=== PATIENT | male | born 1980 | race African-American/Black ===

== ENCOUNTER 2022-04-02 20:20 | Emergency (ER) | payer SELFPAY ==
[~2022-04-02] VITALS: Ht 170.2 cm; Wt 80.7 kg
[2022-04-02 20:45] VITALS: BP 140/102
[2022-04-02 23:16] VITALS: BP 130/99
== END 2022-04-02 23:22 | disposition home or self-care (01) | DRG 563 ==
LOC: ED 20:20
DX: S93.601A Unspecified sprain of right foot, initial encounter (principal); W18.40XA Slipping, tripping and stumbling without falling, unspecified, initial encounter; F17.200 Nicotine dependence, unspecified, uncomplicated

== ENCOUNTER 2022-10-04 15:58 | Emergency (ER) | payer OTHER ==
[~2022-10-04] VITALS: Ht 170.2 cm; Wt 94.0 kg
[2022-10-04 16:53] LABS: BASO% 0.6 % (0-3); EOS% 2.6 % (0-8); HEMOGLOBIN 14.8 g/dl (14.0-18.0); IMMATURE GRANULOCYTES 0.6 % (0.0-5.0); LYMPH% 23.8 % (15-41); MEAN CELL VOLUME 88.3 fL CALC (80.0-100.0); MEAN CORPUSCULAR HGB 30.4 pG CALC (26.0-32.0); MEAN CORPUSCULAR HGB CONC 34.4 g/dL CAL (32.0-36.0); MONO% 9.4 % (2-13); NEUT# 4.56 thou/uL (1.82-7.42); RED BLOOD COUNT 4.87 mill/uL (4.70-6.10); RED CELL DISTRI WIDTH 12.9 % (11.5-15.5)
[2022-10-04 17:08] LABS: ALKALINE PHOSPHATASE 74 u/l (38-126); ANION GAP 12 (6-22 (CALC)); BUN 6 mg/dL (9-20); BUN/CREATININE RATIO 8 (12-20 (CALC)); CARBON DIOXIDE 25 mmol/l (22-30); CHLORIDE 104 mmol/l (95-108); CREATININE 0.8 mg/dL (0.7-1.3); GFR FOR AFR.AMER. > 60 ML/MIN (>=60 (CALC)); GFR OTHER RACES > 60 ML/MIN (>=60 (CALC)); LIPASE 1013 u/l (23-300); POTASSIUM 3.5 mmol/l (3.5-5.1); SGOT/AST 40 u/l (17-59); SODIUM 137 mmol/l (137-146); TOTAL PROTEIN 6.7 g/dL (6.3-8.2)
[2022-10-04] MEDS ORDERED: NAPROXEN500 MG PO (21:45)
[2022-10-04] MEDS ORDERED: PROTONIX40 MG PO (21:45)
[2022-10-04 21:53] VITALS: BP 147/85
== END 2022-10-04 21:55 | disposition home or self-care (01) | DRG 551 ==
LOC: ED 15:58
PROVIDERS: Family Medicine
DX: M54.2 Cervicalgia (principal); K85.90 Acute pancreatitis without necrosis or infection, unspecified; M54.50 Low back pain, unspecified; V54.5XXA Driver of pick-up truck or van injured in collision with heavy transport vehicle or bus in traffic accident, initial encounter
CPT/HCPCS: Q9967

== ENCOUNTER 2022-10-08 18:04 | Emergency (ER) | payer SELFPAY ==
[~2022-10-08] VITALS: Ht 172.7 cm; Wt 93.0 kg
[~2022-10-08 18:04] MED LIST: NAPROXEN500 MG PO; PROTONIX40 MG PO
[2022-10-08 18:39] VITALS: BP 141/95
[2022-10-08 19:00] VITALS: BP 128/92
[2022-10-08 19:42] LABS: BASO% 0.5 % (0-3); HEMATOCRIT 47.2 % (39.0-50.0); HEMOGLOBIN 15.6 g/dl (14.0-18.0); IMMATURE GRANULOCYTES 0.9 % (0.0-5.0); LYMPH% 21.2 % (15-41); MEAN CELL VOLUME 91.1 fL CALC (80.0-100.0); MEAN CORPUSCULAR HGB 30.1 pG CALC (26.0-32.0); MEAN CORPUSCULAR HGB CONC 33.1 g/dL CAL (32.0-36.0); MONO% 7.9 % (2-13); NEUT# 6.24 thou/uL (1.82-7.42); NEUT% 66.5 % (42-76); RED BLOOD COUNT 5.18 mill/uL (4.70-6.10); RED CELL DISTRI WIDTH 12.8 % (11.5-15.5)
[2022-10-08 19:55] LABS: ALBUMIN 4.2 g/dL (3.2-5.0); ALKALINE PHOSPHATASE 85 u/l (38-126); AMYLASE 73 u/l (30-110); ANION GAP 13 (6-22 (CALC)); BILIRUBIN, TOTAL 0.6 mg/dL (0.2-1.3); BUN 4 mg/dL (9-20); BUN/CREATININE RATIO 5 (12-20 (CALC)); CARBON DIOXIDE 27 mmol/l (22-30); CHLORIDE 104 mmol/l (95-108); CREATININE 0.8 mg/dL (0.7-1.3); GFR FOR AFR.AMER. > 60 ML/MIN (>=60 (CALC)); GFR OTHER RACES > 60 ML/MIN (>=60 (CALC)); LIPASE 70 u/l (23-300); POTASSIUM 4.1 mmol/l (3.5-5.1); SGOT/AST 30 u/l (17-59); SODIUM 139 mmol/l (137-146); TOTAL PROTEIN 6.9 g/dL (6.3-8.2)
[2022-10-08 20:09] VITALS: BP 128/92
== END 2022-10-08 20:09 | disposition home or self-care (01) | DRG 948 ==
LOC: ED 18:04
PROVIDERS: Emergency Medicine
DX: R79.89 Other specified abnormal findings of blood chemistry (principal); F17.290 Nicotine dependence, other tobacco product, uncomplicated